=== PATIENT | male | born 2000 | race Hispanic/Latino ===

== ENCOUNTER 2022-04-06 09:35 | Emergency (ER) | payer SELFPAY ==
[~2022-04-06] VITALS: Ht 165.1 cm; Wt 70.0 kg
[2022-04-06] MEDS ORDERED: FLOXIN OTIC0.3 % AD (10:07)
[2022-04-06 10:13] VITALS: BP 120/69
== END 2022-04-06 10:20 | disposition home or self-care (01) | DRG 156 ==
LOC: ED 09:35
DX: H92.02 Otalgia, left ear (principal)